=== PATIENT | male | born 1970 | race African-American/Black ===

== ENCOUNTER 2022-05-28 23:33 | Observation (INO) | payer OTHER ==
[2022-05-29 00:16] LABS: #Eosinphils 0.3 10x3/uL (0.0-0.5); #Monocytes 0.6 10x3/uL (0.0-1.1); #Neutrophils 2.7 10x3/uL (1.5-8.4); %Basophils 0.3 % (0.0-2.0); %Eosinophils 3.9 % (0.0-6.0); %Monocytes 8.3 % (0.0-10.0); %Neutrophils 40.4 % (40.0-75.0); Hemoglobin 13.7 g/dL (13.5-17.5); Mean Corpuscular HGB CONC 33.7 g/dL (32.0-36.0); Mean Corpuscular Hemoglobin 30.7 pg (27.0-33.0); Mean Platelet Volume 9.9 fl (7.4-10.4); Platelet Count 204 10x3/uL (150-450); RBC Distribution Width 14.6 % (11.5-14.5); Red Blood Cell (RBC) Count 4.46 10x6/uL (4.32-5.72); White Blood Cell (WBC) Count 6.8 10x3/uL (3.5-10.5)
[2022-05-29 00:35] LABS: ALT (SGPT) 19 U/L (8-55); AST (SGOT) 15 U/L (5-34); Albumin 4.4 g/dL (3.5-5.0); Alkaline Phosphatase 108 U/L (40-110); Anion Gap 13 mmol/L (10-20); BUN (Urea Nitrogen) 14 mg/dL (8.4-25.7); Bilirubin, Total 0.4 mg/dL (0.2-1.2); Calc. Creatinine Clearance 0 mL/min (70-130); Calcium 9.4 mg/dL (7.8-10.44); Carbon Dioxide 26 mmol/L (22-29); Chloride 105 mmol/L (98-107); Estimated GFR 80; Globulin 2.6 g/dL (2.4-3.5); Glucose 130 mg/dL (70-105); Potassium 3.3 mmol/L (3.5-5.1); Sodium 141 mmol/L (136-145)
[2022-05-29] MEDS ORDERED: Acetaminophen 325 MG TAB PO PRN (01:23)
[2022-05-29] MEDS ORDERED: Senokot S 8.6-50 MG TAB PO PRN (01:23)
[2022-05-29] MEDS ORDERED: HYDROcodone/Acetaminophen 5/325 mg Tablet PO PRN (01:23)
[2022-05-29] MEDS ORDERED: Ondansetron PF 4 MG/2 ML Vial IVP PRN (01:23)
[2022-05-29] MEDS ORDERED: Calcium Carbonate 500 MG ChewTAB PO PRN (01:23)
[2022-05-29] MEDS ORDERED: Zolpidem Tartrate 5 MG TAB PO PRN (01:23)
[2022-05-29] MEDS ORDERED: Nitroglycerin 0.4 MG TAB (25 Tab Bottle) SL PRN ×2 (01:25→11:45)
[2022-05-29] MEDS ORDERED: Dicyclomine 10 MG CAP PO PRN (01:26)
[2022-05-29] MEDS ORDERED: Albuterol Sulfate 2.5 mg/3 ml Neb NEB PRN (01:29)
[2022-05-29] MEDS ORDERED: Potassium Chloride 20 MEQ TAB PO SCH (01:30)
[2022-05-29] MEDS ORDERED: Lactated Ringer's 500 ML IV SCH (01:30)
[2022-05-29] MEDS ORDERED: Enoxaparin Sodium 100 MG/ML SYRINGE ONE (03:08)
[2022-05-29] MEDS ORDERED: Nitroglycerin 2% Ointment 1 INCH/1 GM Packet ONE (03:09)
[2022-05-29 04:14] LABS: Anion Gap 14 mmol/L (10-20); BUN (Urea Nitrogen) 12 mg/dL (8.4-25.7); Calc. Creatinine Clearance 0 mL/min (70-130); Calcium 9.1 mg/dL (7.8-10.44); Carbon Dioxide 26 mmol/L (22-29); Cardiac Risk 3.7 (Less than 4.5); Chloride 106 mmol/L (98-107); Cholesterol 158 mg/dl (< 200 Desired); Estimated GFR 78; Glucose 170 mg/dL (70-105); HDL Cholesterol 43 mg/dL (>60 Neg Risk); LDL Cholesterol, Calculated 97 mg/dL; Potassium 3.6 mmol/L (3.5-5.1); Sodium 142 mmol/L (136-145); Triglycerides 88 mg/dL (Less than 150)
[2022-05-29 04:43] LABS: CKMB 1.7 ng/mL (0-6.6)
[2022-05-29] MEDS ORDERED: Acetaminophen 325 MG TAB ONE (05:43)
[2022-05-29 06:38] LABS: SARS-CoV-2 NAA Rapid Test Not Detected (NotDetected)
[2022-05-29] MEDS ORDERED: Iopamidol 300 61% 100 ML VIAL FS ONE (08:41)
[2022-05-29] MEDS ORDERED: Losartan Potassium 50 MG TAB PO SCH (09:00)
[2022-05-29] MEDS ORDERED: Metoprolol Tartrate 25 MG TAB PO SCH (09:00)
[2022-05-29 09:08] LABS: CKMB 2.7 ng/mL (0-6.6)
[2022-05-29] MEDS ORDERED: Lidocaine 1% MPF 2 ML VIAL ONE (09:43)
[2022-05-29] MEDS ORDERED: Nitroglycerin 50 MG/250 ML BOT 250 ML ONE (09:43)
[2022-05-29] MEDS ORDERED: Heparin 10,000 UNITS/ 10 ML VIAL ONE ×2 (09:43→10:45)
[2022-05-29] MEDS ORDERED: Sodium Chloride 0.9% 1,000 ML ONE (09:44)
[2022-05-29] MEDS ORDERED: Verapamil 5 MG/2 ML VIAL ONE (09:44)
[2022-05-29] MEDS ORDERED: Bivalirudin 250 MG VIAL ONE (09:44)
[2022-05-29] MEDS ORDERED: Adenosine 6 MG/2 ML VIAL ONE (09:44)
[2022-05-29] MEDS ORDERED: Communication Order-Pharmacy FS SCH (09:45)
[2022-05-29] MEDS ORDERED: Midazolam HCl 2 mg/2 ml Vial ONE (10:10)
[2022-05-29] MEDS ORDERED: Fentanyl 100 MCG/2 ML VIAL ONE (10:10)
[2022-05-29] MEDS ORDERED: TICAGRELOR 90 MG TABLET ONE (10:34)
[2022-05-29] MEDS ORDERED: HYDROcodone/Acetaminophen 5/325 mg Tablet ONE (11:33)
[2022-05-29] MEDS ORDERED: Sodium Chloride 0.9% 200 ML IV PRN (11:45)
[2022-05-29] MEDS ORDERED: Acetaminophen/Codeine 30-300mg Tablet PO PRN ×2 (11:45)
[2022-05-29 13:05] LABS: CKMB 3.1 ng/mL (0-6.6)
[2022-05-29 13:11] LABS: Hemoglobin A1c 6.2 % (4.0-6.0)
[2022-05-29] MEDS: Aspirin 81 mg Enteric Coated Tablet PO SCH (14:20)
[2022-05-29 14:31] VITALS: BMI 31.1
[2022-05-29] MEDS: Carvedilol 6.25 MG TAB PO SCH (18:53)
[2022-05-29] MEDS ORDERED: Enoxaparin Sodium 40 MG/0.4 ML SYRINGE SC SCH (21:00)
[2022-05-29] MEDS ORDERED: Rosuvastatin 20 MG TAB PO SCH (21:00)
[2022-05-29] MEDS: TICAGRELOR 90 MG TABLET PO SCH (21:07)
[2022-05-29] MEDS ORDERED: Gabapentin 300 MG CAP PO SCH (22:30)
[2022-05-29] MEDS ORDERED: Escitalopram Oxalate 20 mg Tablet PO SCH (22:30)
[2022-05-30] MEDS: Carvedilol 6.25 MG TAB PO SCH (08:52)
[2022-05-30] MEDS: TICAGRELOR 90 MG TABLET PO SCH (08:52)
[2022-05-30] MEDS: Aspirin 81 mg Enteric Coated Tablet PO SCH (08:52)
[2022-05-30] MEDS ORDERED: Lisinopril 5 MG TAB PO SCH (09:00)
[2022-05-30 10:15] LABS: #Eosinphils 0.2 10x3/uL (0.0-0.5); #Monocytes 0.4 10x3/uL (0.0-1.1); #Neutrophils 2.3 10x3/uL (1.5-8.4); %Basophils 0.2 % (0.0-2.0); %Eosinophils 4.2 % (0.0-6.0); %Lymphocytes 36.4 % (18.0-47.0); %Monocytes 9.1 % (0.0-10.0); %Neutrophils 49.9 % (40.0-75.0); Hemoglobin 13.5 g/dL (13.5-17.5); Mean Corpuscular HGB CONC 33.8 g/dL (32.0-36.0); Mean Corpuscular Hemoglobin 31.8 pg (27.0-33.0); Mean Corpuscular Volume 94.1 fl (81.2-95.1); Mean Platelet Volume 10.4 fl (7.4-10.4); Platelet Count 200 10x3/uL (150-450); RBC Distribution Width 14.6 % (11.5-14.5); Red Blood Cell (RBC) Count 4.25 10x6/uL (4.32-5.72); White Blood Cell (WBC) Count 4.5 10x3/uL (3.5-10.5)
[2022-05-30 10:32] LABS: Anion Gap 14 mmol/L (10-20); BUN (Urea Nitrogen) 8 mg/dL (8.4-25.7); Calc. Creatinine Clearance 120 mL/min (70-130); Calcium 8.9 mg/dL (7.8-10.44); Carbon Dioxide 24 mmol/L (22-29); Chloride 106 mmol/L (98-107); Estimated GFR 85; Glucose 99 mg/dL (70-105); Potassium 4.1 mmol/L (3.5-5.1); Sodium 140 mmol/L (136-145)
[2022-05-30 10:55] LABS: Troponin I 1.314 ng/mL (< 0.028)
[2022-05-30 11:52] VITALS: BP 118/72
[2022-05-30 11:53] VITALS: TEMP 97.8
[2022-05-30] MEDS ORDERED: Gabapentin 300 MG CAP PO SCH (21:00)
[2022-05-30] MEDS ORDERED: Escitalopram Oxalate 20 mg Tablet PO SCH (21:00)
== END 2022-05-30 12:55 | disposition home or self-care (01) ==
LOC: CSHERS 23:33 → CSHERHOLD 05-29 01:19 → CSHTELE 05-29 12:57
PROVIDERS: ADMIT Student in an Organized Health Care Education/Training Program; ATTEND Internal Medicine
PROC: 4A023N7 Measurement of Cardiac Sampling and Pressure, Left Heart, Percutaneous Approach (ICD-10-PCS; principal; 2022-05-29)
PROC: B201YZZ Plain Radiography of Multiple Coronary Arteries using Other Contrast (ICD-10-PCS; 2022-05-29)
PROC: B205YZZ Plain Radiography of Left Heart using Other Contrast (ICD-10-PCS; 2022-05-29)
PROC: 02703ZZ Dilation of Coronary Artery, One Artery, Percutaneous Approach (ICD-10-PCS; 2022-05-29)
DX: I21.4 Non-ST elevation (NSTEMI) myocardial infarction (principal); I25.10 Atherosclerotic heart disease of native coronary artery without angina pectoris; I25.5 Ischemic cardiomyopathy; I13.0 Hypertensive heart and chronic kidney disease with heart failure and stage 1 through stage 4 chronic kidney disease, or unspecified chronic kidney disease; I50.21 Acute systolic (congestive) heart failure; N18.2 Chronic kidney disease, stage 2 (mild); E87.6 Hypokalemia; E78.5 Hyperlipidemia, unspecified; J45.20 Mild intermittent asthma, uncomplicated; K58.9 Irritable bowel syndrome, unspecified; R73.9 Hyperglycemia, unspecified; Z20.822 Contact with and (suspected) exposure to COVID-19; Z82.49 Family history of ischemic heart disease and other diseases of the circulatory system; Z79.899 Other long term (current) drug therapy; Z98.890 Other specified postprocedural states
CPT/HCPCS: 36415; 71045; 80048; 80053; 80061; 82553; 83036; 83880; 84484; 85025; 85347; 92920; 93005; 93306; 93458; 96372; 99152; 99153; C1769; C1887; C1894; G0378; J0153; J0583; J1644; J1650; J2250; J3010; J7050; Q9967

== ENCOUNTER 2023-04-21 11:42 | Emergency (ER) | payer OTHER ==
[2023-04-21 12:37] LABS: #Monocytes 0.6 10x3/uL (0.0-1.1); #Neutrophils 2.4 10x3/uL (1.5-8.4); %Basophils 0.4 % (0.0-2.0); %Eosinophils 0.6 % (0.0-6.0); %Lymphocytes 37.3 % (18.0-47.0); %Monocytes 11.4 % (0.0-10.0); %Neutrophils 50.3 % (40.0-75.0); Hemoglobin 16.1 g/dL (13.5-17.5); Mean Corpuscular HGB CONC 33.5 g/dL (32.0-36.0); Mean Corpuscular Hemoglobin 30.8 pg (27.0-33.0); Mean Platelet Volume 10.4 fl (7.4-10.4); Platelet Count 236 10x3/uL (150-450); RBC Distribution Width 14.6 % (11.5-14.5); Red Blood Cell (RBC) Count 5.22 10x6/uL (4.32-5.72); White Blood Cell (WBC) Count 4.8 10x3/uL (3.5-10.5)
[2023-04-21 12:46] LABS: ALT (SGPT) 22 U/L (8-55); AST (SGOT) 21 U/L (5-34); Albumin 4.7 g/dL (3.5-5.0); Alkaline Phosphatase 80 U/L (40-110); Anion Gap 20 mmol/L (10-20); BUN (Urea Nitrogen) 24 mg/dL (8.4-25.7); Bilirubin, Total 0.8 mg/dL (0.2-1.2); Calc. Creatinine Clearance 0 mL/min (70-130); Calcium 9.6 mg/dL (7.8-10.44); Carbon Dioxide 24 mmol/L (22-29); Chloride 98 mmol/L (98-107); Estimated GFR 35; Globulin 2.5 g/dL (2.4-3.5); Glucose 118 mg/dL (70-105); Potassium 4.6 mmol/L (3.5-5.1); Protein, Total 7.2 g/dL (6.0-8.3); Sodium 137 mmol/L (136-145)
[2023-04-21] MEDS ORDERED: Ondansetron PF 4 MG/2 ML Vial ONE (12:55)
[2023-04-21] MEDS ORDERED: Acetaminophen 500 MG TAB ONE (15:48)
[2023-04-21 16:45] LABS: Bilirubin Neg (Negative); Blood, Urine Negative (Negative); Clarity Hazy (Clear); Glucose, Urine (Dipstick) >=1000 mg/dL (Negative); Ketone, Urine Negative (Negative); Leukocyte 25 (Negative); Nitrite Negative (Negative); Protein, Urine (Dipstick) 100 mg/dl (Neg-Trace); Specific Gravity, Urine 1.015 (1.005-1.030); Urobilinogen Normal mg/dL (Less than 2)
[2023-04-21 16:53] LABS: RBC/HPF 0-3 HPF (0-3)
[2023-04-21 16:54] LABS: Bacteria/HPF 2+ HPF (None Seen); CAUTI Indications for Culture Pelvic or flank pain; Mucous/LPF 3+ LPF (<2+)
[2023-04-21 16:57] LABS: Squamous Epithelial None Seen HPF (0-3)
[2023-04-21 16:59] LABS: Urine Culture Reflex No No
[2023-04-21 18:23] LABS: Anion Gap 12 mmol/L (10-20); BUN (Urea Nitrogen) 23 mg/dL (8.4-25.7); CK (CPK) 203 U/L (30-200); Calc. Creatinine Clearance 0 mL/min (70-130); Calcium 8.2 mg/dL (7.8-10.44); Carbon Dioxide 27 mmol/L (22-29); Chloride 103 mmol/L (98-107); Estimated GFR 44; Glucose 133 mg/dL (70-105); Potassium 4.1 mmol/L (3.5-5.1); Sodium 138 mmol/L (136-145)
[2023-04-21 18:23] LABS: SARS-CoV-2 NAA Rapid Test Not Detected (NotDetected)
== END 2023-04-21 18:37 | disposition home or self-care (01) ==
LOC: CSHERS 11:42
DX: T67.5XXA Heat exhaustion, unspecified, initial encounter (principal); E86.0 Dehydration; I10 Essential (primary) hypertension; Z79.899 Other long term (current) drug therapy
CPT/HCPCS: 36415; 80053; 81001; 82550; 83605; 84484; 85025; 93005; 96361; 96374; J2405

== ENCOUNTER 2024-09-07 08:24 | Outpatient (CLI) | payer OTHER | END 2024-09-07 08:25 | disposition home or self-care (01) | LOC: CSHSLEEP 08:24 | PROVIDERS: ATTEND Internal Medicine | DX: G47.33 Obstructive sleep apnea (adult) (pediatric) (principal) | CPT/HCPCS: 95800 ==

== ENCOUNTER 2024-10-05 04:49 | Emergency (ER) | payer OTHER ==
[2024-10-05 05:36] LABS: #Basophils 0.03 10x3/uL (0.0-0.2); #Eosinophils 0.17 10x3/uL (0.0-0.5); #Monocytes 0.57 10x3/uL (0.0-1.1); #Neutrophils 2.27 10x3/uL (1.5-8.4); %Basophils 0.6 % (0.0-2.0); %Eosinophils 3.3 % (0.0-6.0); %Lymphocytes 40.3 % (18.0-47.0); %Monocytes 11.2 % (0.0-10.0); %Neutrophils 44.6 % (40.0-75.0); Hematocrit 43.8 % (38.8-50.0); Hemoglobin 14.5 g/dL (13.5-17.5); Mean Corpuscular HGB CONC 33.1 g/dL (32.0-36.0); Mean Corpuscular Hemoglobin 31.5 pg (27.0-33.0); Mean Platelet Volume 10.1 fL (7.4-10.4); Platelet Count 187 10x3/uL (150-450); RBC Distribution Width 14.2 % (11.5-14.5); Red Blood Cell (RBC) Count 4.61 10x6/uL (4.32-5.72); White Blood Cell (WBC) Count 5.09 10x3/uL (3.5-10.5)
[2024-10-05] MEDS ORDERED: Ondansetron PF 4 MG/2 ML Vial ONE (05:47)
[2024-10-05] MEDS ORDERED: Morphine 4 MG/ML VIAL ONE (05:47)
[2024-10-05 05:54] LABS: ALT (SGPT) 20 U/L (8-55); AST (SGOT) 16 U/L (5-34); Alkaline Phosphatase 92 U/L (40-110); Anion Gap 9 mmol/L (10-20); BUN (Urea Nitrogen) 14 mg/dL (8.4-25.7); Bilirubin, Total 0.4 mg/dL (0.2-1.2); Calc. Creatinine Clearance 0 mL/min (70-130); Calcium 9.1 mg/dL (7.8-10.44); Carbon Dioxide 27 mmol/L (22-29); Chloride 110 mmol/L (98-107); Estimated GFR 81; Globulin 2.4 g/dL (2.4-3.5); Glucose 102 mg/dL (70-105); Lipase 66 U/L (8-78); Magnesium 2.3 mg/dL (1.6-2.6); Protein, Total 6.4 g/dL (6.0-8.3); Sodium 142 mmol/L (136-145)
[2024-10-05 06:00] LABS: Troponin I Less than 0.010 ng/mL (< 0.028)
[2024-10-05] MEDS ORDERED: Dicyclomine 20 MG/2 ML VIAL ONE (06:01)
[2024-10-05 07:58] LABS: Troponin I Less than 0.010 ng/mL (< 0.028)
== END 2024-10-05 09:25 | disposition home or self-care (01) ==
LOC: CSHERS 04:49
DX: R07.89 Other chest pain (principal); K52.9 Noninfective gastroenteritis and colitis, unspecified; E78.00 Pure hypercholesterolemia, unspecified; I11.0 Hypertensive heart disease with heart failure; I50.9 Heart failure, unspecified; I25.2 Old myocardial infarction; Z79.82 Long term (current) use of aspirin; Z79.01 Long term (current) use of anticoagulants; Z79.899 Other long term (current) drug therapy
CPT/HCPCS: 36415; 71045; 80053; 83690; 83735; 84484; 85025; 93005; 96372; 96374; 96375; J2270; J2405